=== PATIENT | female | born 1985 | race Caucasian/White ===

== ENCOUNTER 2017-04-11 16:19 | Emergency (ER) | payer OTHER ==
[2017-04-11 16:31] VITALS: BP 116/72
--- NOTE | 2017-04-11 18:42 | ED ---
Skin Complaint - HPI Summary HPI Summary: Patient presents to the with CC of lesion under the left nare which scabbing. Lesion has been present for 4 days and has been worsening. Denies fevers, sweats, chills or other signs of a systemic illness. Hx of MRSA+ x 4 areas within 2 years. Denies other symptoms including RIDLEY, eye pain, ear pain or facial pain. Pain is 9/10 and worse with palpation. - History of Current Complaint Chief Complaint: UCSkin Time Seen by Provider: 04/11/17 16:43 Stated Complaint: BOIL SIDE OF NOSE Hx Obtained From: Patient Hx Last Menstrual Period: unknown Onset/Duration: Started Days Ago Skin Exposure Onset/Duration: Days Ago Timing: Constant Onset Severity: Moderate Current Severity: Moderate Pain Intensity: 8 Pain Scale Used: 0-10 Numeric Skin Location: Discrete, Other: - nose Character: Raised, Painful Aggravating Symptom(s): Nothing Alleviating Symptom(s): Nothing Associated Signs & Symptoms: Negative - Allergy/Home Medications Allergies/Adverse Reactions: Allergies Allergy/AdvReac Type Severity Reaction Status Date / Time environmental Allergy Sneezing Uncoded 04/11/17 16:31 PMH/Surg Hx/FS Hx/Imm Hx Previously Healthy: Yes Endocrine/Hematology History: Denies: Hx Anticoagulant Therapy, Hx Diabetes, Hx Systemic Lupus Erythematosus, Hx Thyroid Disease Cardiovascular History: Denies: Hx Congestive Heart Failure, Hx Deep Vein Thrombosis, Hx Hypertension , Hx Myocardial Infarction, Hx Pacemaker/ICD Respiratory History: Reports: Hx Asthma - She uses her inhaler about once a day. Denies: Hx Chronic Obstructive Pulmonary Disease (COPD), Hx Lung Cancer GI History: Denies: Hx Gall Bladder Disease, Hx Gastrointestinal Bleed, Hx Ulcer, Hx Urosepsis History: Denies: Hx Kidney Stones, Hx Renal Disease Musculoskeletal History: Denies: Hx Rheumatoid Arthritis Sensory History: Denies: Hx Cataracts, Hx Contacts or Glasses, Hx Eye Injury, Hx Eye Prosthesis, Hx Glaucoma, Hx Legally Blind, Hx Macular Degeneration, Hx Vision Problem, Hx Deafness, Hx Hearing Aid, Hx Hearing Problem, Other Sensory Impairments Opthamlomology History: Denies: Hx Cataracts, Hx Contacts or Glasses, Hx Eye Injury, Hx Eye Prosthesis, Hx Glaucoma, Hx Legally Blind, Hx Macular Degeneration, Hx Vision Problem, Other Sensory Impairments Neurological History: Denies: Hx Dementia, Hx Migraine, Hx Seizures, Hx Transient Ischemic Attacks (TIA) Psychiatric History: Reports: Hx Substance Abuse Denies: Hx Anxiety, Hx Depression, Hx Schizophrenia, Hx Bipolar Disorder - Cancer History Hx Chemotherapy: No - Surgical History Surgery Procedure, Year, and Place: 12/31/12-cholecystectomy - Immunization History Hx Pertussis Vaccination: No Immunizations Up to Date: Unable to Obtain/Confirm Infectious Disease History: Yes Infectious Disease History: Reports: Hx of Known/Suspected MRSA - 03/2014 R arm Denies: Hx Clostridium Difficile, Hx Hepatitis, Hx Human Immunodeficiency Virus (HIV), Hx Shingles, Hx Tuberculosis, Hx Known/Suspected VRE, Hx Known/ Suspected VRSA, History Other Infectious Disease, Traveled Outside the [place] in Last 30 Days - Family History Known Family History: Positive: None - Social History Occupation: Employed Part-time Lives: With Family Alcohol Use: None Alcohol Amount: 4 days a week Hx Substance Use: Yes Substance Use Type: Reports: Marijuana Substance Use Comment - Amount & Last Used: "maybe once a month" Hx Tobacco Use: Yes Smoking Status (MU): Heavy Every Day Tobacco Smoker Type: Cigarettes Amount Used/How Often: 1 PPD Length of Time of Smoking/Using Tobacco: 10 yrs Have You Smoked in the Last Year: Yes Review of Systems Constitutional: Negative Eyes: Negative Cardiovascular: Negative Respiratory: Negative Gastrointestinal: Negative Musculoskeletal: Negative Positive: Other - lesion just inferior to the left nare with scabbing with yellow drainage Neurological: Negative Psychological: Normal All Other Systems Reviewed And Are Negative: Yes Physical Exam Triage Information Reviewed: Yes Vital Signs On Initial Exam: Initial Vitals Temp Pulse Resp BP Pulse Ox 98.4 F 89 16 116/72 99 04/11/17 16:23 04/11/17 16:23 04/11/17 16:23 04/11/17 16:23 04/11/17 16:23 Vital Signs Reviewed: Yes Appearance: Positive: Well-Appearing, Well-Nourished Skin: Positive: Warm, Skin Color Reflects Adequate Perfusion, Other - lesion just inferior to the left nare with scabbing with yellow drainage Head/Face: Positive: Normal Head/Face Inspection Eyes: Positive: EOMI, MERLE, Conjunctiva Clear Neck: Positive: Supple, No Lymphadenopathy Respiratory/Lung Sounds: Positive: Clear to Auscultation, Breath Sounds Present Cardiovascular: Positive: Normal, RRR, Pulses are Symmetrical in both Upper and Lower Extremities Musculoskeletal: Positive: Normal, Strength/ROM Intact Neurological: Positive: Sensory/Motor Intact, Alert, Oriented to Person Place, Time, Speech Normal Psychiatric: Positive: Normal, Affect/Mood Appropriate AVPU Assessment: Alert - Tu Coma Scale Best Eye Response: 4 - Spontaneous Best Motor Response: 6 - Obeys Commands Best Verbal Response: 5 - Oriented Diagnostics - Vital Signs Vital Signs Temp Pulse Resp BP Pulse Ox 04/11/17 16:23 98.4 F 89 16 116/72 99 - Laboratory Lab Statement: Any lab studies that have been ordered have been reviewed, and results considered in the medical decision making process. Course/Dx - Course Course Of Treatment: Patient states she will not allow provider to touch or culture the area. She is treated with bactrim for possible MRSA and given mupirocin ointment for impetigo breakout. She is OK with discharge. - Differential Diagnoses - Skin Complaint Differential Diagnoses: Abscess, Cellulitis, Impetigo - Diagnoses Provider Diagnoses: Impetigo Discharge - Discharge Plan Condition: Stable Disposition: HOME Prescriptions: Ibuprofen TAB* [Motrin TAB* 800 MG] 800 mg PO TID #30 tab Mupirocin 2% OINT* [Bactroban 2 % Oint*] 1 applic TOPICAL BID #1 tube Sulfamethox/Trimethoprim DS* [Bactrim DS 800/160 TAB*] 1 tab PO BID #14 tab MDD 2 Patient Education Materials: Impetigo (ED), Abscess (ED) Referrals: No Primary Care Phys,NOPCP [Medical Doctor] - Additional Instructions: Ointment over the area twice daily Bactrim twice daily x 7 days If symptoms become worse - return to the Images - Images Nose: 1 - lesion just inferior to the left nare with scabbing with yellow drainage
== END 2017-04-11 17:02 | disposition home or self-care (01) ==
LOC: UCCORT 16:19
DX: L01.00 Impetigo, unspecified (principal)
CPT/HCPCS: 99212; G0463

== ENCOUNTER 2017-09-12 15:44 | Emergency (ER) | payer OTHER ==
[2017-09-12 16:05] VITALS: BP 115/56
--- NOTE | 2017-09-12 16:21 | UC ---
Headache HPI - HPI Summary HPI Summary: Pt presents with c/o left facial cheek pain and pain behind left eye with RIDLEY. Pt states that she was walking outside and slipped on railroad tracks and fell down to knees but does not remember hitting her face. Pt states that she walks in her sleep and often wakes with injuries on body and to face. Pt is concerned that she has injured her face, does not have bruising, swelling or any other sign or symptom that indicates a facial injury. Pt is . Pt is unsure how many weeks , possibly 13 or 15 weeks. Pt reports 2000 mg PO Ibuprofen with no improvement of pain - History Of Current Complaint Chief Complaint: UCHeadInjury Stated Complaint: FACE PAIN Time Seen by Provider: 09/12/17 15:55 Hx Obtained From: Patient Hx Last Menstrual Period: unknown ?: Yes Onset/Duration: Sudden Onset, Lasting Days, Still Present Onset Of Symptoms: Sudden, Still Present Initially Headache Was: Mild Currently Pain Is: Moderate Pain Intensity: 9 Timing: Constant Character: Dull, Throbbing, Pressure Location of Headache: Occipital, Other: - maxillary Aggravating Factor(s): Other - touch Allevating Factor(s): Nothing Associated Signs And Symptoms: Positive: Sinus Pressure - Risk Factors SAH Risk Factors: Negative Meningitis Risk Factors: Negative SDH Risk Factors: Negative Temporal Arteritis Risk Factors: Negative - Allergies/Home Medications Allergies/Adverse Reactions: Allergies Allergy/AdvReac Type Severity Reaction Status Date / Time environmental Allergy Sneezing Uncoded 04/11/17 16:31 Home Medications: Home Medications 105/Iron/Folic AC/Dha [Prena1 True Combo Pack] 09/12/17 [History] Sertraline HCl [Zoloft] 100 mg PO 09/12/17 [History] PMH/Surg Hx/FS Hx/Imm Hx Previously Healthy: Yes Other History Of: Negative For: HIV, Hepatitis B, Hepatitis C, Anticoagulant Therapy - Surgical History Surgical History: Yes Surgery Procedure, Year, and Place: 12/31/12-cholecystectomy - Family History Known Family History: Positive: Cardiac Disease - Social History Occupation: Unemployed Lives: With Family Alcohol Use: None Alcohol Amount: 4 days a week Substance Use Type: None Substance Use Comment - Amount & Last Used: "maybe once a month" Smoking Status (MU): Heavy Every Day Tobacco Smoker Type: Cigarettes Amount Used/How Often: 1 PPD Length of Time of Smoking/Using Tobacco: 10 yrs Have You Smoked in the Last Year: Yes Household Exposure Type: Cigarettes Cessation Counseling: Patient Advised to Stop - Pt refused information regarding smoking cessation - Immunization History Most Recent Influenza Vaccination: 03/2017 Most Recent Tetanus Shot: ~2012 Review of Systems Constitutional: Negative Skin: Negative Eyes: Negative ENT: Sinus Congestion Respiratory: Negative Cardiovascular: Negative Gastrointestinal: Negative Genitourinary: Negative Motor: Negative Neurovascular: Negative Musculoskeletal: Negative Neurological: Headache Psychological: Negative Is Patient Immunocompromised?: No All Other Systems Reviewed And Are Negative: Yes Physical Exam Triage Information Reviewed: Yes Appearance: Thin, Other: - pt was aggravated during examination. Pt stated "unhappy with not getting a Cat Scan or xray of her head/face". Pt states that she thinks she samshed her face in her sleep regardless of no bruising, swelling or facial stepoff. Pt has history of seasonal allergies and is taking OTC antihistamine. Pt seemed unconcerned about taking high dose of ibuprofen, as she stated, "I don't care, I don't have any tylenol at home" Vital Signs: Initial Vital Signs Temp 98.8 F 09/12/17 15:59 Pulse 85 09/12/17 15:59 Resp 16 09/12/17 15:59 BP 115/56 09/12/17 15:59 Pulse Ox 99 09/12/17 15:59 Vital Signs Reviewed: Yes Eye Exam: Normal, Other - PERRLA ENT Exam: Normal ENT: Positive: Normal ENT inspection, TMs normal Dental Exam: Normal Neck exam: Normal Neck: Positive: Supple, Nontender Respiratory Exam: Normal Respiratory: Positive: No respiratory distress Cardiovascular Exam: Normal Musculoskeletal Exam: Normal Musculoskeletal: Positive: Other: - tenderness left maxilla, no bruising or swelling. Neurological Exam: Normal Psychological Exam: Normal Skin Exam: Normal Headache Course/Dx - Course Course Of Treatment: Pt stated she was unhappy with diagnosis. I discussed with her the risks of having Xray or CT scan while in the absence of and physical sign or symptom to indicate facial trauma. - Differential Dx/Diagnosis Differential Diagnosis/HQI/PQRI: Sinus Headache, Tension Headache, Viral Syndrome, Other - sinusitis Provider Diagnoses: sinus headache. sinusitis Discharge - Discharge Plan Condition: Stable Disposition: HOME Prescriptions: Acetaminophen TAB* [Tylenol TAB*] 650 mg PO Q4H PRN #120 tab PRN Reason: Pain Amoxicillin PO (*) [Amoxicillin 875 MG (*)] 875 mg PO Q12H #20 tab Patient Education Materials: Sinusitis (ED), Acute Headache (ED) Referrals: Darcie Castaneda MD [Primary Care Provider] - If Needed Additional Instructions: Please follow up with your PCP or return to clinic as needed.
== END 2017-09-12 16:29 | disposition home or self-care (01) ==
LOC: UCCORT 15:44
DX: O26.899 Other specified pregnancy related conditions, unspecified trimester (principal); R51 Headache; J32.9 Chronic sinusitis, unspecified; O99.330 Smoking (tobacco) complicating pregnancy, unspecified trimester; F17.210 Nicotine dependence, cigarettes, uncomplicated; Z3A.00 Weeks of gestation of pregnancy not specified
CPT/HCPCS: 99212; G0463

== ENCOUNTER 2018-05-20 11:11 | Emergency (ER) | payer OTHER ==
--- NOTE | 2018-05-20 12:25 | UC ---
Dental HPI - HPI Summary HPI Summary: 33 yo female with PMH of depression on paxil who c/o abscess of her tooth for several days, trying to f/u with dentist. She also c/o malodorous discharge and requests prescription for BV. Denies chills, fever . She has been taking tylenol and ibuprofen for pain - History of Current Complaint Stated Complaint: DENTAL CONCERN, PERSONAL Time Seen by Provider: 05/20/18 12:20 Hx Obtained From: Patient Hx Last Menstrual Period: unknown Onset/Duration: Sudden Onset, Lasting Days Severity: Severe Pain Intensity: 10 - Allergies/Home Medications Allergies/Adverse Reactions: Allergies Allergy/AdvReac Type Severity Reaction Status Date / Time environmental Allergy Sneezing Uncoded 04/11/17 16:31 Home Medications: Home Medications Norgestimate-Ethinyl Estradiol [Ortho Tri-Cyclen Lo Tablet] 1 each PO DAILY 06/25 [History Confirmed 05/20/18] PARoxetine HCL TAB* [Paxil TAB*] 20 mg PO DAILY 05/20/18 [History Confirmed 06/25] PMH/Surg Hx/FS Hx/Imm Hx Psychological History: Depression Other History Of: Negative For: HIV, Hepatitis B, Hepatitis C, Anticoagulant Therapy - Surgical History Surgical History: Yes Surgery Procedure, Year, and Place: 12/31/12-cholecystectomy - Family History Known Family History: Positive: None, Cardiac Disease - Social History Alcohol Use: None Alcohol Amount: 4 days a week Substance Use Type: None Substance Use Comment - Amount & Last Used: "maybe once a month" Smoking Status (MU): Heavy Every Day Tobacco Smoker Type: Cigarettes Amount Used/How Often: 1 PPD Length of Time of Smoking/Using Tobacco: 10 yrs Have You Smoked in the Last Year: Yes Household Exposure Type: Cigarettes - Immunization History Most Recent Influenza Vaccination: 03/2017 Most Recent Tetanus Shot: ~2012 Review of Systems All Other Systems Reviewed And Are Negative: Yes Genitourinary: Positive: Vaginal/Penile Discharge Physical Exam Triage Information Reviewed: Yes Appearance: Well-Appearing, No Pain Distress, Well-Nourished Vital Signs Reviewed: Yes Eyes: Positive: Conjunctiva Clear ENT: Positive: Hearing grossly normal, Pharynx normal, Dental tenderness - dental sepsis of several molars teeth 17-18 with soft tissue swelling and tenderness., Uvula midline Neck: Positive: Supple, Nontender, No Lymphadenopathy Respiratory: Positive: Chest non-tender, Lungs clear, Normal breath sounds Cardiovascular: Positive: RRR, No Murmur, Pulses Normal, Brisk Capillary Refill Abdomen Description: Positive: Nontender Bowel Sounds: Positive: Present Musculoskeletal: Positive: Strength Intact Neurological: Positive: Alert Dental Complaint Course/Dx - Course Course Of Treatment: dental abscess to start clindamycin as prescribed. Patient gives history of recurrent BV and vaginal discharge with odor, she self swabbed with AFFIRM test, start metronidazole as prescribed. F/u dental and PCP as scheduled - Differential Dx/Diagnosis Provider Diagnoses: dental abscess. Vaginosis Discharge - Sign-Out/Discharge Documenting (check all that apply): Patient Departure All imaging exams completed and their final reports reviewed: No Studies - Discharge Plan Condition: Stable Disposition: HOME Prescriptions: Clindamycin HCl 150 mg PO TID 7 Days #21 capsule metroNIDAZOLE [Flagyl 500 MG TAB] 500 mg PO TID 7 Days #21 tab Patient Education Materials: Clindamycin (By mouth), Metronidazole (By mouth), Bacterial Vaginosis (ED), Dental Abscess (ED) Referrals: No Primary Care Phys,NOPCP [Primary Care Provider] - [facility] [place] [facility] [Outside] - Billing Disposition and Condition Condition: STABLE Disposition: Home
[2018-05-20 12:30] VITALS: BP 126/78
--- NOTE | 2018-05-21 21:40 | UC ---
- Progress Note Progress Note: + Franca Pt on Flagyl no change ljj 05/21/2018 Discharge - Sign-Out/Discharge Documenting (check all that apply): Post-Discharge Follow Up All imaging exams completed and their final reports reviewed: No Studies - Discharge Plan Condition: Stable Disposition: HOME Prescriptions: Clindamycin HCl 150 mg PO TID 7 Days #21 capsule metroNIDAZOLE [Flagyl 500 MG TAB] 500 mg PO TID 7 Days #21 tab Patient Education Materials: Clindamycin (By mouth), Metronidazole (By mouth), Bacterial Vaginosis (ED), Dental Abscess (ED) Referrals: [facility] [place] [facility] [Outside] No Primary Care Phys,NOPCP [Primary Care Provider] - - Billing Disposition and Condition Condition: STABLE Disposition: Home
== END 2018-05-20 12:57 | disposition home or self-care (01) ==
LOC: UCCORT 11:11
DX: K04.7 Periapical abscess without sinus (principal); N76.0 Acute vaginitis; B96.89 Other specified bacterial agents as the cause of diseases classified elsewhere; F17.210 Nicotine dependence, cigarettes, uncomplicated
CPT/HCPCS: 87480; 87510; 87660; 99212; G0463

== ENCOUNTER 2018-06-22 11:59 | Emergency (ER) | payer OTHER ==
[2018-06-22 12:13] VITALS: BP 123/63
--- NOTE | 2018-06-22 12:24 | UC ---
Skin Complaint HPI - HPI Summary HPI Summary: Rash started today. It is very itchy. She denies prior hx of anaphylaxis, icu admission, ed visits for allergic reaction. she does not need epi pen for any indication. She denies new foods or meds. She is very confident that this is due to a new soap at aunt's house. It is very itchy. No trouble swallowing and no cough or wheezing. - History of Current Complaint Chief Complaint: UCAllergicReaction Time Seen by Provider: 06/22/18 12:15 Stated Complaint: RASH, SWOLLEN LIPS Hx Obtained From: Patient Hx Last Menstrual Period: currently Onset/Duration: Gradual Onset, Lasting Hours Skin Exposure Onset/Duration: Days Ago Timing: Constant Onset Severity: Mild Current Severity: Moderate Pain Intensity: 0 Location: Diffuse, Generalized Character: Pruritus, Redness Aggravating Factor(s): Touch Alleviating Factor(s): OTC Meds - benadryl po has not helped. Associated Signs & Symptoms: Positive: Rash. Negative: Fever, Chills, Cough, Wheezing, Throat Tightening - Allergy/Home Medications Allergies/Adverse Reactions: Allergies Allergy/AdvReac Type Severity Reaction Status Date / Time environmental Allergy Sneezing Uncoded 06/22/18 12:13 PMH/Surg Hx/FS Hx/Imm Hx Previously Healthy: No - asthma. Other History Of: Negative For: HIV, Hepatitis B, Hepatitis C, Anticoagulant Therapy - Surgical History Surgical History: Yes Surgery Procedure, Year, and Place: 12/31/12-cholecystectomy - Family History Known Family History: Positive: None, Cardiac Disease - Social History Alcohol Use: None Alcohol Amount: 4 days a week Substance Use Type: None Substance Use Comment - Amount & Last Used: "maybe once a month" Smoking Status (MU): Heavy Every Day Tobacco Smoker Type: Cigarettes Amount Used/How Often: 1 PPD Length of Time of Smoking/Using Tobacco: 10 yrs Have You Smoked in the Last Year: Yes Household Exposure Type: Cigarettes - Immunization History Most Recent Influenza Vaccination: 03/2017 Most Recent Tetanus Shot: ~2012 Review of Systems All Other Systems Reviewed And Are Negative: Yes Skin: Positive: Rash Is Patient Immunocompromised?: No Physical Exam Triage Information Reviewed: Yes Appearance: Well-Appearing, No Pain Distress, Well-Nourished Vital Signs: Initial Vital Signs Temp 97.6 F 12/15/18 12:10 Pulse 93 06/22/18 12:10 Resp 20 06/22/18 12:10 BP 123/63 06/22/18 12:10 Pulse Ox 100 06/22/18 12:10 Vital Signs Reviewed: Yes Eye Exam: Normal Eyes: Positive: Conjunctiva Clear. Negative: Conjunctiva Inflamed ENT: Positive: Normal ENT inspection, Pharynx normal, TMs normal, Uvula midline. Negative: TM bulging, TM dull, TM red, Tonsillar swelling, Tonsillar exudate, Trismus, Muffled voice, Hoarse voice Neck: Positive: Supple, Nontender, No Lymphadenopathy Respiratory: Positive: Lungs clear, Normal breath sounds, No respiratory distress, No accessory muscle use. Negative: Respiratory distress, Decreased breath sounds, Accessory muscle use, Crackles, Rhonchi, Stridor, Wheezing Cardiovascular: Positive: No Murmur, Pulses Normal, Brisk Capillary Refill. Negative: Tachycardia Abdomen Description: Positive: No Organomegaly, Soft. Negative: Distended, Guarding Musculoskeletal: Positive: Strength Intact, ROM Intact, No Edema Neurological: Positive: Alert, Muscle Tone Normal. Negative: Fatigued Psychological: Positive: Age Appropriate Behavior Skin: Positive: Rashes, Other - diffuse rash patchy slighly papular. No obvious hives. No lip or palate swelling. Re-Evaluation - Re-Evaluation First Eval Change: Improved Course/Dx - Diagnoses Provider Diagnosis: Allergic reaction Discharge - Sign-Out/Discharge Documenting (check all that apply): Patient Departure All imaging exams completed and their final reports reviewed: No Studies - Discharge Plan Condition: Good Disposition: HOME Prescriptions: predniSONE [Prednisone 20 MG TAB] 20 mg PO DAILY #20 tablet Patient Education Materials: Dermatitis (ED), Urticaria (ED) Referrals: No Primary Care Phys,NOPCP [Primary Care Provider] - Additional Instructions: Return here or to the ED for any worsening symptoms. - Billing Disposition and Condition Condition: GOOD Disposition: Home
[2018-06-22] MEDS ORDERED: diPHENhydraMINE IV* 50 MG/ML 1 ml VIAL (BENADRYL) IM ONE (12:35)
[2018-06-22] MEDS ORDERED: methylPREDNISolone 125 MG* 2 ML VIAL IM ONE (12:35)
== END 2018-06-22 12:39 | disposition home or self-care (01) ==
LOC: UCCORT 11:59
DX: T78.40XA Allergy, unspecified, initial encounter (principal); X58.XXXA Exposure to other specified factors, initial encounter; F17.210 Nicotine dependence, cigarettes, uncomplicated
CPT/HCPCS: 96372; 99212; G0463; J1200; J2930